=== PATIENT | female | born 1950 | race Caucasian/White ===

== ENCOUNTER 2016-10-15 20:25 | Emergency (ER) | payer MEDICAID, OTHER ==
[~2016-10-15] VITALS: Ht 162.6 cm; Wt 69.0 kg
[~2016-10-15 20:25] MED LIST: AMOX500C2 PO; CODE118S PO
[2016-10-15 20:29] VITALS: Ht 162.6 cm; Wt 69.0 kg
[2016-10-15] MEDS ORDERED: GENT5DRO28 LEFT EYE (21:41)
[2016-10-15] MEDS ORDERED: PROPARACAINE 0.5% 15 ML OPH BOTH EYES ONE (22:00)
--- NOTE | 2016-11-06 22:05 | ERA ---
ER Documentation Chief Complaint Date/Time DATE: 11/06/16 TIME: 21:22 Chief Complaint left eye redness since yesterday HPI This is a 58-year-old female presenting with a chief complaint of left eye redness 1-1/2 days. Describes a lump times mildly pruritic. Denies foreign body sensation, eye pain, photophobia, known foreign body history, history of glaucoma, decreased vision, headache, or fever. No sick contacts. ROS All systems reviewed and are negative except as per history of present illness. Medications Home Meds Active Scripts Gentamicin Sulfate* (Gentamicin Sulfate* Ophth) 0.3% - 5 Ml Drops, 1 DROP LEFT EYE Q4 for 14 Days, EA Prov:CAMELIA ELDRIDGE PA-C 10/15/16 Promethazine w/Codeine (Phenergan w/Codeine Syrup) 5 Ml Syrup, 5 ML PO Q6 Y for COUGH, #120 ML 0 Refills Prov:YESICA GUNN PA-C 04/10/15 Amoxicillin* (Amoxicillin*) 500 Mg Cap, 500 MG PO TID, #21 CAP 0 Refills Prov:EYSICA GUNN PA-C 04/10/15 Allergies Allergies: Coded Allergies: No Known Allergy (Unverified , 04/10/15) PMhx/Soc History of Surgery: Yes (RT EYE SX) Anesthesia Reaction: No Hx Neurological Disorder: No Hx Respiratory Disorders: No Hx Cardiac Disorders: Yes (HTN; CHOL; ) Hx Psychiatric Problems: No Hx Miscellaneous Medical Probl: No Hx Alcohol Use: No Hx Substance Use: No Hx Tobacco Use: No Smoking Status: Never smoker Physical Exam Physical Exam Const: Healthy-appearing. Well-nourished. Well-developed. No acute distress. Eyes: Left mildly injected sclera. EOMI and DALIA bilaterally. Neur: Awake, alert and oriented x3. Neurovascularly intact bilaterally. Psych: Normal Mood and Affect. Head: Normocephalic, Atraumatic. Ears: Normal External Ears, EACs clear, TM normal bilaterally without erythema. Nose: Normal nose without discharge, septal deviation, or sinus tenderness. Oral: No oral edema visualized. Mucous membranes moist and pink. Neck: No cervical lymphadenopathy, masses or goiter palpated. Trachea midline. Supple ~ No meningismus. Pulm: Good air movement in upper and lower respiratory tracts. No dyspnea, stridor, tripoding or drooling. Clear to auscultation bilaterally. Cardio: Regular rate and rhythm; No murmurs, gallops or rubs auscultated. No JVD grossly observed. Radial and posterior tibial pulses 2+ bilaterally. No cyanosis. Capillary refill less than 2 seconds. Abd: Soft, non tender, non distended. No guarding, masses. Normal bowel sounds. No McBurney's point tenderness. MS: Normal motor strength, normal tone with gross examination. Skin: No petechiae or rashes. No ulcer, induration, jaundice. Good turgor. Back: No midline, flank or CVA tenderness. Ext: No cyanosis, edema or palpable cord. Normal movement of all extremities grossly observed. Results 24 hrs Current Medications Medications (Trade) Dose Ordered Sig/Anna Route PRN Reason Start Time Stop Time Status Last Admin Dose Admin Proparacaine HCl (Alcaine 0.5%) 1 drop ONCE ONCE BOTH EYES 10/15/16 22:00 10/15/16 22:00 DC Procedures/MDM Patient is being worked up and evaluated for a pruritic, non-painful, acute red left eye as described in the history and physical exam. My current differential includes, but is not limited to, the following: conjunctivitis, uveitis, keratitis, scleritis, dacryocystitis, corneal foreign body, corneal ulcer, etc. Visual acuity was measured prior to the treatment and procedures. Two drops of proparacaine were used in the affected eye. A fluorescein eye stain was then applied using a strip along the lower eyelid of the affected eye and revealed no ulcer, other epithelial defect or ice rank sign. A slit lamp was then used for further evaluation and reveal no epithelial defects or foreign bodies. The current most likely diagnosis is viral versus bacterial conjunctivitis of the left eye. Treatment will thus include acetaminophen for discomfort and gentamicin antibiotic ophthalmic solution for infection. Visual acuity was measured after the procedure and remained unchanged. At this time I have very little suspicion for acute glaucoma, corneal ulcer, keratitis, uveitis, or hemorrhage. I have spoke with the patient regarding their condition and future management. They have verbally responded that they understand their status and treatment plan. The patients vitals are stable, and their current condition is appropriate for discharge. The patient will be given discharge instructions with return precautions. Departure Diagnosis: Primary Impression: Conjunctivitis Qualified Code: H10.32 - Acute bacterial conjunctivitis of left eye Condition: Stable Referrals: [facility] Hours: Mon - Fri 9:00 AM - 5:00 PM Additional Instructions: Seguimiento con Oftalmolog[employer] en los prximos alvarenga 1-3 para marcia evaluacin ms exhaustiva y marcia referencia posible a un especialista. Volver el servicio de urgencias inmediatamente si los sntomas empeoran o cambiaran. Si usted tiene alguna pregunta con respecto a medicamentos, pedir contreras farmacutico o a nosotros antes de salir. Producirse reacciones adversas mientras est tomando selin medicamentos, suspender el tratamiento y regresar a la odalys de emergencias inmediatamente. [place] selin medicamentos elizabeth lo indique y completar el curso entero de tratamiento. CAMELIA ELDRIDGE PA-C Nov 06, 2016 21:32
== END 2016-10-15 21:53 | disposition home or self-care (01) ==
LOC: FTE 20:25
DX: H10.32 Unspecified acute conjunctivitis, left eye (principal); I10 Essential (primary) hypertension
CPT/HCPCS: Z7502; Z7610; 99283